=== PATIENT | female | born 1985 | race Caucasian/White ===

== ENCOUNTER 2016-11-29 12:36 | Emergency (ER) | payer OTHER ==
[~2016-11-29] VITALS: Ht 157.5 cm; Wt 56.7 kg
[2016-11-29 12:44] VITALS: BP 117/75; PULSE 114; RESP 17; TEMP 97.9; O2SAT 100
--- NOTE | 2016-11-29 12:48 | NUR ---
Patient triaged and placed in waiting room. VSS and patient appears in no acute distress at this time. Accompanied by parents, awaiting available bed, and MD notified of need for MSE.
--- NOTE | 2016-11-29 13:10 | NUR ---
Pt brought by self, daugher at bedside, A&Ox4, pt c/o productive cough and chest congestion, skin pink and warm, cap refill <3, ambulatory,afebrile.
--- NOTE | 2016-11-29 13:15 | NUR ---
AMBULATED TO BED 1
--- NOTE | 2016-11-29 13:22 | NUR ---
Dr. Fontana at bedside for evaluation
[2016-11-29] MEDS ORDERED: DEXAMETHASONE SOD PHOSPHATE 10 MG/ML VIAL IVP ONE (13:45)
[2016-11-29] MEDS ORDERED: KETOROLAC TROMETHAMINE 60 MG/2 ML VIAL IM ONE (13:45)
[2016-11-29] MEDS ORDERED: DEXAMETHASONE SOD PHOSPHATE 10 MG/ML VIAL IM ONE (14:00)
[2016-11-29 15:42] VITALS: BP 121/71; PULSE 91; RESP 17; TEMP 97.9; O2SAT 100
--- NOTE | 2016-11-29 15:42 | NUR ---
Dr. Fontana speaking with pt regarding ED results and follow up. Patient given written and verbal discharge instructions and verbalizes understanding. ER MD discussed with patient the results and treatment provided. Patient in stable condition. ID arm band removed. Rx of ibuprofen, promethazine with codiene and Zpak given. Patient educated on pain management and to follow up with PMD. Pain Scale 0/10. Opportunity for questions provided and answered.
== END 2016-11-29 15:42 | disposition home or self-care (01) ==
LOC: SED 12:36
DX: J40 Bronchitis, not specified as acute or chronic (principal); Z71.6 Tobacco abuse counseling; Z88.1 Allergy status to other antibiotic agents
CPT/HCPCS: 36415; 71010; 81025; 86710; 96372; 99285; J1100; J1885

== ENCOUNTER 2017-03-07 19:34 | Emergency (ER) | payer OTHER ==
[~2017-03-07] VITALS: Ht 157.5 cm; Wt 58.1 kg
[2017-03-07 19:38] VITALS: BP_SYST 107
== END 2017-03-07 20:45 | disposition left against medical advice (07) ==
LOC: SED 19:34
DX: R51 Headache (principal); R42 Dizziness and giddiness; Z53.21 Procedure and treatment not carried out due to patient leaving prior to being seen by health care provider

== ENCOUNTER 2017-04-15 21:18 | Emergency (ER) | payer OTHER ==
[~2017-04-15] VITALS: Ht 157.5 cm; Wt 59.0 kg
[2017-04-15 21:44] VITALS: BP_SYST 110
--- NOTE | 2017-04-15 21:44 | NUR ---
Patient to ER bed 8 for evaluation. Side rails up. Report given to NAHID rodríguez
--- NOTE | 2017-04-15 21:45 | NUR ---
Awake, alert, oriented x3. Complains of dull lower abdominal pain since Thursday.
--- NOTE | 2017-04-15 21:46 | NUR ---
ER at bedside examining patient.
[2017-04-15 22:12] LABS: BILIRUBIN,URINE NEGATIVE (NEGATIVE); CLARITY/URINE HAZY (CLEAR); COLOR,URINE YELLOW (YELLOW); GLUCOSE,URINE NEGATIVE (NEGATIVE); KETONES,URINE NEGATIVE (NEGATIVE); LEUKOCYTE ESTERASE ,URINE NEGATIVE (NEGATIVE); NITRITE, URINE NEGATIVE (NEGATIVE); PROTEIN URINE NEGATIVE (NEGATIVE); UROBILINOGEN,URINE 0.2 (0.2-1.0)
[2017-04-15 22:17] LABS: BLOOD, URINE TRACE (NEGATIVE)
[2017-04-15 22:24] LABS: BACTERIA,URINE FEW /HPF (None Seen); MUCUS,URINE 3+ /LPF (None Seen); WBC,URINE 0-3 /HPF (0-3)
[2017-04-15 22:53] VITALS: BP_SYST 112
--- NOTE | 2017-04-15 22:53 | NUR ---
Patient given written and verbal discharge instructions and verbalizes understanding. ER MD discussed with patient the results and treatment provided. Patient in stable condition. ID arm band removed. No Rx given. Patient educated on pain management and to follow up with PMD. Pain Scale 5/10. Opportunity for questions provided and answered.
== END 2017-04-15 22:53 | disposition home or self-care (01) ==
LOC: SED 21:18
DX: R10.32 Left lower quadrant pain (principal); F17.200 Nicotine dependence, unspecified, uncomplicated; Z88.1 Allergy status to other antibiotic agents
CPT/HCPCS: 81000-TC; 81025; 99283

== ENCOUNTER 2018-04-18 10:35 | Emergency (ER) | payer MEDICAID, OTHER ==
[~2018-04-18] VITALS: Ht 157.5 cm; Wt 57.2 kg
[2018-04-18 10:39] VITALS: BP_SYST 123
[2018-04-18 11:50] LABS: BILIRUBIN,URINE NEGATIVE (NEGATIVE); BLOOD, URINE 2+ (NEGATIVE); CLARITY/URINE CLEAR (CLEAR); COLOR,URINE YELLOW (YELLOW); GLUCOSE,URINE NEGATIVE (NEGATIVE); KETONES,URINE NEGATIVE (NEGATIVE); LEUKOCYTE ESTERASE ,URINE TRACE (NEGATIVE); NITRITE, URINE POSITIVE (NEGATIVE); PH,URINE 7.5 (5.0-8.0); PROTEIN URINE TRACE (NEGATIVE); UROBILINOGEN,URINE 0.2 (0.2-1.0)
[2018-04-18 12:24] VITALS: BP_SYST 120
[2018-04-18 12:37] LABS: BACTERIA,URINE FEW /HPF (None Seen); MUCUS,URINE None Seen /LPF (None Seen); WBC,URINE 0-3 /HPF (0-3)
== END 2018-04-18 12:22 | disposition home or self-care (01) ==
LOC: SED 10:35
DX: N39.0 Urinary tract infection, site not specified (principal); J02.8 Acute pharyngitis due to other specified organisms; B97.89 Other viral agents as the cause of diseases classified elsewhere; F17.200 Nicotine dependence, unspecified, uncomplicated; Z88.1 Allergy status to other antibiotic agents
CPT/HCPCS: 81000-TC; 81025; 99283

== ENCOUNTER 2018-11-05 06:12 | Emergency (ER) | payer MEDICAID, OTHER ==
[~2018-11-05] VITALS: Ht 157.5 cm; Wt 63.5 kg
[2018-11-05 06:30] VITALS: BP_SYST 110
[2018-11-05 07:42] VITALS: BP_SYST 112
== END 2018-11-05 07:42 | disposition home or self-care (01) ==
LOC: SED 06:12
DX: N76.0 Acute vaginitis (principal); N94.6 Dysmenorrhea, unspecified; Z88.1 Allergy status to other antibiotic agents
CPT/HCPCS: 81025; 99283

== ENCOUNTER 2021-08-08 17:51 | Emergency (ER) | payer SELFPAY ==
[~2021-08-08] VITALS: Ht 157.5 cm; Wt 62.1 kg
[2021-08-08 18:01] VITALS: BP_SYST 150
[2021-08-08 19:09] LABS: BASOPHILS % (AUTO) 0.7 % (0.0-2.0); EOSINOPHILS # (AUTO) 0.2 K/uL (0.0-0.4); EOSINOPHILS % (AUTO) 3.2 % (0.0-4.0); HEMATOCRIT 37.9 % (36-48); LYMPHOCYTES # (AUTO) 2.2 K/uL (1.0-5.5); LYMPHOCYTES % (AUTO) 37.9 % (20.5-51.5); MEAN CORPUSCULAR HEMOGLOBIN 33 pg (27-31); MEAN CORPUSCULAR HGB CONC 34 % (32-36); MEAN CORPUSCULAR VOLUME 95 fL (79.0-98.0); MONOCYTES # (AUTO) 0.3 K/uL (0.0-1.0); MONOCYTES % (AUTO) 5.1 % (1.7-9.3); NEUTROPHILS % (AUTO) 53.1 % (40.0-70.0); PLATELET COUNT (AUTO) 313 K/uL (130-430); RED BLOOD CELL COUNT(AUTO) 4.01 MIL/uL (4.2-6.2); RED CELL DISTRIBUTION WIDTH 11.9 % (9.0-15.0); WHITE BLOOD COUNT (AUTO) 5.7 K/uL (4.8-10.8)
[2021-08-08 19:27] LABS: CALCIUM 8.9 mg/dL (8.4-11.0); CREATININE 0.95 mg/dL (0.55-1.30); POTASSIUM 4.1 mmol/L (3.5-5.1)
[2021-08-08 19:33] LABS: ALBUMIN 3.7 g/dL (3.4-4.8); TOTAL BILIRUBIN 0.2 mg/dL (0.0-1.0)
[2021-08-08] MEDS ORDERED: MAGNESIUM CITRATE 300 ML ORAL SOLUTION PO ONE (22:00)
[2021-08-08 22:02] VITALS: BP_SYST 142
== END 2021-08-08 22:00 | disposition home or self-care (01) ==
LOC: SED 17:51
DX: K59.00 Constipation, unspecified (principal); Z88.8 Allergy status to other drugs, medicaments and biological substances
CPT/HCPCS: 36415; 74018; 80053; 81025; 83690; 85025; 99284

== ENCOUNTER → 2023-07-15 | Emergency (ER) | payer OTHER ==
[~2023-07-15] VITALS: Ht 157.5 cm; Wt 60.3 kg
[2023-07-15 11:25] VITALS: BP_SYST 110; PULSE 80; RESP 18; TEMP 98.1; O2SAT 95
== END | disposition left against medical advice (07) ==
LOC: SED 11:25
DX: M54.6 Pain in thoracic spine (principal); M54.2 Cervicalgia; R51.9 Headache, unspecified; Z53.21 Procedure and treatment not carried out due to patient leaving prior to being seen by health care provider
CPT/HCPCS: 99281